=== PATIENT | female | born 1965 | race Caucasian/White ===

== ENCOUNTER → 2018-05-02 | Outpatient (CLI) | payer OTHER ==
--- NOTE | 2018-05-02 17:26 | KCIC ---
3 view study of the left knee Clinical indications: Chronic left knee pain. FINDINGS: No acute fracture or dislocation or osteolytic process is seen. No significant arthritic change is seen. IMPRESSION: No acute osseous abnormality. Electronically signed by: Derek Luevano MD (05/02/2018 5:21 PM) [place] [id number]
== END | disposition home or self-care (01) ==
LOC: RAD 13:22
PROVIDERS: ATTEND Family Medicine
DX: M25.562 Pain in left knee (principal)
CPT/HCPCS: 73562